=== PATIENT | female | born 1945 | race Caucasian/White ===

== ENCOUNTER 2021-07-14 20:32 | Emergency (ER) | payer SELFPAY ==
[~2021-07-14] VITALS: Ht 162.6 cm; Wt 59.6 kg
[2021-07-14] MEDS ORDERED: DIPH,PERTUSS(ACELL),TET VAC/PF 0.5 ML SYRINGE. VAX IM ONE ×2 (20:44→20:45)
[2021-07-14] MEDS ORDERED: AMOX1TAB61 PO (20:51)
--- NOTE | 2021-07-14 20:53 | PHYS DOC ---
General Adult EDM: Chief Complaint: ANIMAL BITE HPI: HPI: Patient is a 76-year-old female being seen in the ER today for a dog bite to her right arm. Patient denies any increased pain. She states that she does came to the ER for a tetanus shot. Patient denies any decreased range of motion or decreased sensation in her arm. She states that it was a neighbors dog that bit her. She states that they were up-to-date on their vaccines but she has contacted animal control to verify. (HERBERT HANNAH APRN) Review of Systems: Review of Systems: 14 body systems of the review of systems have been reviewed. See HPI for pertinent positive and negative responses, otherwise all other systems are negative, nonpertinent or noncontributory (HERBERT HANNAH APRN) Current Medications: Current Meds: Current Medications Medications (Trade) Dose Ordered Sig/Yuniel Start Time Stop Time Status Last Admin Dose Admin Diphtheria/ Pertussis/Tetanus Vacc (ADACEL TDap SYRINGE) 0.5 ml STK-MED ONCE 07/14/21 20:44 07/14/21 20:44 DC (HERBERT HANNAH APRN) Allergies: Allergies: Allergies Coded Allergies Type Severity Reaction Last Updated Verified No Known Drug Allergies 07/14/21 No (HERBERT HANNAH APRN) Physical Exam: PE: Constitutional: Well developed, well nourished, no acute distress, non-toxic appearance. [] HENT: Normocephalic, atraumatic Eyes: PERRLA, EOMI, conjunctiva normal, no discharge. [] Neck: Normal range of motion, no stridor Cardiovascular: Normal peripheral perfusion Lungs & Thorax: Normal work of breathing, no tachypnea Abdomen: Soft Skin: Warm, dry, no erythema, no rash, 2 puncture bryan noted to the anterior aspect of patient's right forearm, 2 puncture bryan noted to the posterior aspect of patient's right forearm, no surrounding signs of infection, no obvious deformity to the arm, neuro intact, range of motion intact Back: Normal range of motion Extremities: No tenderness, no cyanosis, no clubbing, ROM intact, no edema. [] Neurologic: Alert and oriented X 3, normal motor function, normal sensory function, no focal deficits noted. [] Psychologic: Affect normal, judgement normal, mood normal. [] (HERBERT HANNAH APRN) EKG: EKG: [] (HERBERT HANNAH APRN) Radiology/Procedures: Radiology/Procedures: [] (HERBERT HANNAH APRN) Heart Score: C/O Chest Pain: No Risk Factors: Risk Factors: DM, Current or recent (<one month) smoker, HTN, HLP, family history of CAD, obesity. Risk Scores: Score 0 - 3: 2.5% MACE over next 6 weeks - Discharge Home Score 4 - 6: 20.3% MACE over next 6 weeks - Admit for Clinical Observation Score 7 - 10: 72.7% MACE over next 6 weeks - Early Invasive Strategies (HERBERT HANNAH APRN) Course & Med Decision Making: Course & Med Decision Making Pertinent Labs and Imaging studies reviewed. (See chart for details) [] Patient is a 76-year-old female being seen in the ER for a dog bite to her right arm. These puncture bryan do not require any suturing. There are no signs of infection. There is no obvious deformity. Patient has full range of motion and is neurovascularly intact. Punctures were cleansed and dressed. Tetanus was updated. Patient discharged home with amoxicillin, given first dose in the ER today. Patient advised to monitor for signs of infection and follow- up with her primary care provider. I discussed with patient all findings as well as the need to follow-up with PCP for further evaluation and treatment or return to the ER if any new or worsening symptoms. Strict return precautions were also discussed at length. Patient voiced understanding and agreement with the plan. Patient is hemodynamically stable at the time of disposition. (HERBERT HANNAH APRN) Course & Med Decision Making Did not see or evaluate patient. Agree with TESTING AND REGULATING CHIEF's work-up and disposition per note. (KAMINI GAN MD) Dragon Disclaimer: Dragon Disclaimer: This electronic medical record was generated, in whole or in part, using a voice recognition dictation system. (HERBERT HANNAH APRN) Departure Departure: Impression: Primary Impression: Dog bite Qualified Codes: W54.0XXA - Bitten by dog, initial encounter Disposition: HOME / SELF CARE / HOMELESS Condition: GOOD Patient Instructions: Animal Bite Additional Instructions: You are seen in the ER following a dog bite. These punctures do not require suturing. Please keep them clean and dry. You were given a tetanus shot in the ER. You will also be started on the antibiotic. Please take this as directed. You can take Tylenol/ibuprofen for pain at home. Follow-up with your primary care provider on Friday regarding your ER visit. If you develop worsening of your arm pain, signs of infection surrounding wound such as redne ss/warmth/drainage, high fevers or any new or worsening concerns please return to the ER. EMERGENCY DEPARTMENT GENERAL DISCHARGE INSTRUCTIONS Thank you for coming to [facility] (ED) today and trusting us with you care. We trust that you had a positivie experience in our Emergency Department. If you wish to speak to the department management, you may call the director at [phone]. YOUR FOLLOW UP INSTRUCTIONS ARE FOLLOWS: 1. Do you have a private Doctor? If you do not have a private doctor, please ask for a resource list of physicians or clinics that may be able to assist you with follow up care. 2. The Emergency Physician has interpreted your x-rays. The X-Ray specialist will also review them. If there is a change in the findings, you will be notified in 48 hours when at all possible. 3. A lab test or culture has been done, your results will be reviewed and you will be notified if you need a change in treatment. ADDITIONAL INSTRUCTIONS AND INFORMATION: 1. Your care today has been supervised by a physician who is specially trained in emergency care. Many problems require more than one evaluation for a complete diagnosis and treatment. We recommend that you schedule your follow up appointment as recommended to ensure complete treatment of you illness or injury. If you are unable to obtain follow up care and continue to have a problem, or if your condition worsens, we recommend that you return to the ED. 2. We are not able to safely determine your condition over the phone nor are we able to give sound medical advice over the phone. For these safety reasons, if you call for medical advice we will ask you to come to the ED for further evaluation. 3. If you have any questions regarding these discharge instructions please call the ED at [phone]. SAFETY INFORMATION: In the interest of safety, wellness, and injury prevention; we encourage you to wear your sealbelt, if you smoke; quite smoking, and we encourage family to use a protective helmet for bicycling and other sporting events that present an increased risk for head injury. IF YOUR SYMPTOMS WORSEN OR NEW SYMPTOMS DEVELOP, OR YOU HAVE CONCERNS ABOUT YOUR CONDITION; OR IF YOUR CONDITION WORSENS WHILE YOU ARE WAITING FOR YOUR FOLLOW UP APPOIN TMENT; EITHER CONTACT YOUR PRIMARY CARE DOCTOR, THE PHYSICIAN WHOSE NAME AND NUMBER YOU WERE GIVEN, OR RETURN TO THE ED IMMEDIATELY. Scripts Amoxicillin/Potassium Clav (AUGMENTIN 875-125 TABLET) 1 Each Tablet 1 TAB PO BID for dog bite for 10 Days, #19 TAB 0 Refills Prov: HERBERT HANNAH APRN 07/14/21 HERBERT HANNAH APRN Jul 14, 2021 20:53 KAMINI GAN MD Jul 14, 2021 22:11
[2021-07-14] MEDS ORDERED: AMOXICILLIN/K CLAV 875/125MG TABLET. PO ONE (21:00)
== END 2021-07-14 21:05 | disposition home or self-care (01) ==
LOC: ER 20:32
DX: S41.151A Open bite of right upper arm, initial encounter (principal); W54.0XXA Bitten by dog, initial encounter; Y93.89 Activity, other specified; Y92.89 Other specified places as the place of occurrence of the external cause; Y99.8 Other external cause status
CPT/HCPCS: 90471; 90715; 99283-25